=== PATIENT | male | born 1950 | race Caucasian/White ===

== ENCOUNTER 2022-05-15 08:06 | Outpatient (CLI) | payer MEDICARE | END 2022-05-15 08:07 | disposition home or self-care (01) | LOC: CSHWCC 08:06 | PROVIDERS: ATTEND Nurse Practitioner Family | DX: I87.332 Chronic venous hypertension (idiopathic) with ulcer and inflammation of left lower extremity (principal); L97.821 Non-pressure chronic ulcer of other part of left lower leg limited to breakdown of skin; R60.0 Localized edema | CPT/HCPCS: 29581 ==

== ENCOUNTER 2022-05-21 12:50 | Outpatient (CLI) | payer MEDICARE | END 2022-05-21 12:51 | disposition home or self-care (01) | LOC: CSHWCC 12:50 | PROVIDERS: ATTEND Nurse Practitioner Family | DX: I87.332 Chronic venous hypertension (idiopathic) with ulcer and inflammation of left lower extremity (principal); L97.821 Non-pressure chronic ulcer of other part of left lower leg limited to breakdown of skin; R60.0 Localized edema | CPT/HCPCS: 29581 ==

== ENCOUNTER 2022-05-29 09:39 | Outpatient (CLI) | payer MEDICARE | END 2022-05-29 09:40 | disposition home or self-care (01) | LOC: CSHWCC 09:39 | PROVIDERS: ATTEND Nurse Practitioner Family | DX: I87.332 Chronic venous hypertension (idiopathic) with ulcer and inflammation of left lower extremity (principal); L97.821 Non-pressure chronic ulcer of other part of left lower leg limited to breakdown of skin; R60.0 Localized edema | CPT/HCPCS: 29581; 97139; G0463; 99213 ==

== ENCOUNTER 2022-06-05 10:57 | Outpatient (CLI) | payer MEDICARE | END 2022-06-05 10:58 | disposition home or self-care (01) | LOC: CSHWCC 10:57 | PROVIDERS: ATTEND Nurse Practitioner Family | DX: I87.332 Chronic venous hypertension (idiopathic) with ulcer and inflammation of left lower extremity (principal); L97.821 Non-pressure chronic ulcer of other part of left lower leg limited to breakdown of skin; R60.0 Localized edema | CPT/HCPCS: 29581 ==

== ENCOUNTER 2022-06-15 09:57 | Outpatient (CLI) | payer MEDICARE | END 2022-06-15 09:58 | disposition home or self-care (01) | LOC: CSHWCC 09:57 | PROVIDERS: ATTEND Nurse Practitioner Family | DX: I87.332 Chronic venous hypertension (idiopathic) with ulcer and inflammation of left lower extremity (principal); L97.821 Non-pressure chronic ulcer of other part of left lower leg limited to breakdown of skin; R60.0 Localized edema | CPT/HCPCS: 99213; G0463 ==

== ENCOUNTER 2023-02-24 08:05 | Outpatient (CLI) | payer MEDICARE | END 2023-02-24 08:06 | disposition home or self-care (01) | LOC: CSHWCC 08:05 | PROVIDERS: ATTEND Preventive Medicine Undersea and Hyperbaric Medicine | DX: I87.331 Chronic venous hypertension (idiopathic) with ulcer and inflammation of right lower extremity (principal); L97.812 Non-pressure chronic ulcer of other part of right lower leg with fat layer exposed; R60.0 Localized edema | CPT/HCPCS: 29581 ==

== ENCOUNTER 2023-03-03 08:12 | Outpatient (CLI) | payer MEDICARE | END 2023-03-03 08:13 | disposition home or self-care (01) | LOC: CSHWCC 08:12 | PROVIDERS: ATTEND Preventive Medicine Undersea and Hyperbaric Medicine | DX: I87.331 Chronic venous hypertension (idiopathic) with ulcer and inflammation of right lower extremity (principal); L97.812 Non-pressure chronic ulcer of other part of right lower leg with fat layer exposed; R60.1 Generalized edema | CPT/HCPCS: 29581 ==

== ENCOUNTER 2023-03-10 10:02 | Outpatient (CLI) | payer MEDICARE | END 2023-03-10 10:03 | disposition home or self-care (01) | LOC: CSHWCC 10:02 | PROVIDERS: ATTEND Physician Assistant | DX: I87.331 Chronic venous hypertension (idiopathic) with ulcer and inflammation of right lower extremity (principal); L97.812 Non-pressure chronic ulcer of other part of right lower leg with fat layer exposed; R60.0 Localized edema | CPT/HCPCS: 29581 ==

== ENCOUNTER 2023-03-17 08:25 | Outpatient (CLI) | payer MEDICARE | END 2023-03-17 08:26 | disposition home or self-care (01) | LOC: CSHWCC 08:25 | PROVIDERS: ATTEND Preventive Medicine Undersea and Hyperbaric Medicine | DX: I87.331 Chronic venous hypertension (idiopathic) with ulcer and inflammation of right lower extremity (principal); L97.812 Non-pressure chronic ulcer of other part of right lower leg with fat layer exposed; R60.0 Localized edema | CPT/HCPCS: 29581 ==

== ENCOUNTER 2023-03-22 08:39 | Outpatient (CLI) | payer MEDICARE | END 2023-03-22 08:40 | disposition home or self-care (01) | LOC: CSHWCC 08:39 | PROVIDERS: ATTEND Physician Assistant | DX: I87.331 Chronic venous hypertension (idiopathic) with ulcer and inflammation of right lower extremity (principal); L97.812 Non-pressure chronic ulcer of other part of right lower leg with fat layer exposed; R60.0 Localized edema | CPT/HCPCS: 29581 ==

== ENCOUNTER 2023-03-29 08:11 | Outpatient (CLI) | payer MEDICARE | END 2023-03-29 08:12 | disposition home or self-care (01) | LOC: CSHWCC 08:11 | PROVIDERS: ATTEND Preventive Medicine Undersea and Hyperbaric Medicine | DX: L97.812 Non-pressure chronic ulcer of other part of right lower leg with fat layer exposed (principal); I87.331 Chronic venous hypertension (idiopathic) with ulcer and inflammation of right lower extremity; R60.0 Localized edema | CPT/HCPCS: 29581 ==

== ENCOUNTER 2023-04-05 08:13 | Outpatient (CLI) | payer MEDICARE | END 2023-04-05 08:14 | disposition home or self-care (01) | LOC: CSHWCC 08:13 | PROVIDERS: ATTEND Physician Assistant | DX: I87.311 Chronic venous hypertension (idiopathic) with ulcer of right lower extremity (principal) | CPT/HCPCS: 97602 ==

== ENCOUNTER 2023-04-12 08:08 | Outpatient (CLI) | payer MEDICARE | END 2023-04-12 08:09 | disposition home or self-care (01) | LOC: CSHWCC 08:08 | PROVIDERS: ATTEND Physician Assistant | DX: I87.311 Chronic venous hypertension (idiopathic) with ulcer of right lower extremity (principal); L97.919 Non-pressure chronic ulcer of unspecified part of right lower leg with unspecified severity | CPT/HCPCS: 29581 ==

== ENCOUNTER 2023-04-19 08:15 | Outpatient (CLI) | payer MEDICARE | END 2023-04-19 08:16 | disposition home or self-care (01) | LOC: CSHWCC 08:15 | PROVIDERS: ATTEND Physician Assistant | DX: I87.311 Chronic venous hypertension (idiopathic) with ulcer of right lower extremity (principal) | CPT/HCPCS: 99213; G0463 ==